=== PATIENT | male | born 1995 | race Caucasian/White ===

== ENCOUNTER 2022-10-18 08:35 | Emergency (ER) | payer OTHER, SELFPAY ==
--- NOTE | ~2022-10-18 | XR_ITS ---
EXAMINATION: XR lumbar spine 2-3V DATE: 10/18/2022 09:22 INDICATION: Low back pain TECHNIQUE: Anteroposterior and lateral views of the lumbar spine, and cone-down lateral view of the l umbosacral junction were obtained. COMPARISON: None. FINDINGS: No fracture, dislocation, or subluxation. The vertebral body heights, alignment, and interv ertebral disc spaces are normal. The paravertebral soft tissues are unremarkable. IMPRESSION: 1. No acute osseous abnormality. Reviewed, dictated and finalized at location A.
[2022-10-18 08:31] VITALS: BP 158/97; PULSE 82; RESP 18; TEMP 36.2; O2SAT 95
[2022-10-18] MEDS: SODIUM CHLORIDE 0.9% IV 1,000 ML 999 ML IV CONT (09:06)
[2022-10-18] MEDS: KETOROLAC 15 MG/ML VIAL (*BKC) IV PUSH (09:11)
--- NOTE | 2022-10-18 09:13 | PC.NURSE ---
Pt to XRAY via stretcher at this time
[2022-10-18 10:29] VITALS: BP 141/80; PULSE 73; RESP 18; O2SAT 100
--- NOTE | 2022-10-18 11:01 | ED.FALL ---
HPI - Fall General Chief Complaint: Fall Stated Complaint: back pain Time Seen by Provider: 10/18/22 08:36 History of Present Illness HPI Narrative: Patient is a 27-year-old male who presents ER with low back pain. 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 After chest bumping he fell backwards onto his back. Sudden onset pain. No numbness or tingling to the groin or lower extremities. He is able to walk. He did not strike his head or lose consciousness. Pain is worse with twisting and bending. Better with sitting still. Related Data Allergies Allergy/AdvReac Type Severity Reaction Status Date / Time No Known Allergies Allergy Verified 10/18/22 08:39 Review of Systems Gastrointestinal: Gastrointestinal: Denies abdominal pain, Denies nausea and Denies vomiting Musculoskeletal: Musculoskeletal: Reports back pain, Denies arthralgias, Denies joint swelling and Denies muscle cramps Neurologic: Denies syncope, Denies headache(s), Denies focal weakness and Denies numbness PMFSH Past Medical History Medical History (Updated 10/18/22 @ 11:04 by Rik Posada MD) Healthy adult male Surgical History Surgical History (Updated 10/18/22 @ 11:04 by Rik Posada MD) No history of previous surgery Exam Narrative: GENERAL: Well-appearing, well-nourished, and in no acute distress. HEAD: Normocephalic, atraumatic. CHEST: Clear to auscultation. No respiratory distress. HEART: Regular rate and rhythm. Normal peripheral pulses. Back: No reproducible midline tenderness to the T/L-spine. There is paraspinal lumbar tenderness bilaterally near the level of L3. No bruising or abrasion. EXTREMITIES: Normal range of motion. No edema. SKIN: Warm, dry, no rash. NEURO: Alert and oriented x3. PSYCH: Normal mood and affect. Course Course Emergency Course: Up and ambulatory without issue. Vital Signs Vital signs: Vital Signs Temperature 97.2 F L 10/18/22 08:31 Pulse Rate 82 10/18/22 08:31 Respiratory Rate 18 10/18/22 08:31 Blood Pressure 158/97 H 10/18/22 08:31 Pulse Oximetry 95 10/18/22 08:31 Oxygen Delivery Room Air 10/18/22 08:31 Temperature 97.2 F L 10/18/22 08:31 Pulse Rate 73 10/18/22 10:29 Respiratory Rate 18 10/18/22 10:29 Blood Pressure 141/80 H 10/18/22 10:29 Pulse Oximetry 100 10/18/22 10:29 Oxygen Delivery Room Air 10/18/22 08:31 MDM - Fall MDM Narrative Medical decision making narrative: Medical decision making narrative: -Presentation: 27-year-old male presenting with low back pain. -DDX includes but is not limited to: Lumbar fracture, muscle strain -Co-morbidities complicating care: None -Social determinants of health: Works at [employer] -External Chart Review: None -Hx from independent Sources: History from patient. -Independent interpretation of studies: No evidence of fracture on lumbar x-ray. -Discussion of Management/Consultants: none -Dx tests considered but not ordered: none -Procedures: none -Interventions: Toradol 15 mg and IV fluid. -Shared decision making / Disposition: Discharge home with anti-inflammatories muscle relaxers -RX: Naproxen 325 mg x 14 days, cyclobenzaprine 10 mg as needed. Imaging Data Radiologist's impression: ITS Impressions Lumbar Spine X-Ray 10/18/22 09:25 IMPRESSION: 1. No acute osseous abnormality. Discharge Plan Discharge Clinical Impression: Low back strain Patient Disposition: Home, Self-Care Condition: Stable Instructions: Acute Low Back Pain (ED) Additional Instructions: Return to the ER if you have increased pain in your back, you develop lower extremity weakness/numbness/paralysis, you have numbness or tingling in your private parts, or you are unable to control your ability to urinate/stool. He had an x-ray that showed no evidence of fractur
== END 2022-10-18 11:21 | disposition home or self-care (01) ==
PROVIDERS: Emergency Provider Emergency Medicine
DX: S39.012A Strain of muscle, fascia and tendon of lower back, initial encounter (principal); W03.XXXA Other fall on same level due to collision with another person, initial encounter
CPT/HCPCS: 72100; 96361; 96374; 99284; J1885; J7030